=== PATIENT | female | born 1990 | race Hispanic/Latino ===

== ENCOUNTER 2018-11-27 16:24 | Emergency (ER) | payer SELFPAY ==
[2018-11-27 16:39] LABS: Urine Blood NEGATIVE (NEG); Urine Glucose NEGATIVE (NEG); Urine Protein NEGATIVE (NEG); Urine Specific Gravity 1.025 (1.005-1.030)
[2018-11-27 16:40] LABS: Urine Specific Gravity 1.025 (1.005-1.030)
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
== END 2018-11-27 18:49 | disposition home or self-care (01) ==
LOC: ER 16:24
DX: M54.2 Cervicalgia (principal); M79.10 Myalgia, unspecified site; V49.50XA Passenger injured in collision with unspecified motor vehicles in traffic accident, initial encounter; Z88.0 Allergy status to penicillin
CPT/HCPCS: 36415; 70450; 71260; 72125; 74177; 81003; 81025; 99284; Q9967